=== PATIENT | male | born 1945 | race Caucasian/White ===

== ENCOUNTER 2019-06-27 20:55 | Inpatient (IN) | payer OTHER ==
[~2019-06-27] VITALS: Ht 180.3 cm; Wt 106.0 kg
[~2019-06-27 20:55] MED LIST: ALLOPURINOL100 MG PO; ASPIR 8181 MG PO; CARDIZEM CD360 MG PO; FINASTERIDE5 M1 PO; GLIPIZIDE10 MG PO; GLYXAMBI1 TAB PO; LATANOPROST2.5 ML OP; LOSARTAN POTASS1 TA6 PO; METFORMIN HCL1000 MG PO; OMEPRAZOLE40 M1 PO; PIROXICAM20 MG PO; SIMVASTATIN40 M1 PO
[2019-06-27 21:02] VITALS: Ht 180.3 cm; Wt 106.0 kg
--- NOTE | 2019-06-27 21:11 | NUR ---
PT BIBA WITH C/O NEAR SYNCOPAL EPISODE. PT STS I WAS GETTING UP FROM COUCH AND BECAME WEAK AND FELL TO MY KNEES. DENIES ANY LOC. DENIES ANY TRAUMA. PT STS GAL BEEN FEELING SICK SINCE TUESDAY. PT STS HAVING TESTICLE PAIN AND SWELLING X2 DAYS. PER MEDIC, PTS BS TAKEN EN ROUTE 505. PER MEDIC, IV INSERTED TO LFA G 18, 300ML BOLUS GIVEN EN ROUTE. PT IS A/O X4, SPEECH CLEAR AND APPROPRIATE. SCROTAL EDEMA NOTED, SIZE OF BASEBALL. PLACED ON FULL CM. WILL CONTINUE TO MONITOR.
[2019-06-27 21:23] LABS: PLATELET COUNT 203 x10^3mcL (130-400); RED CELL DISTRIBUTION WIDTH 13.9 % (11.5-14.5)
[2019-06-27 21:30] LABS: CALCIUM 7.8 mg/dL (8.5-10.1); CARBON DIOXIDE 26.3 mmol/L (21-32); CHLORIDE SERUM 94 mmol/L (98-107); GLUCOSE SERUM 440 mg/dL (74-106); POTASSIUM SERUM 3.2 mmol/L (3.5-5.1); SODIUM SERUM 135 mmol/L (136-145)
[2019-06-27 21:34] LABS: ALKALINE PHOSPHATASE 89 U/L (46-116); ALT/SGPT 18 U/L (16-63); AST/SGOT 16 U/L (15-37); BILIRUBIN TOTAL 0.5 mg/dL (0.20-1.00); TOTAL PROTEIN, SERUM 6.8 g/dL (6.4-8.2)
[2019-06-27 21:35] LABS: ALBUMIN 2.1 g/dL (3.4-5.0)
--- NOTE | 2019-06-27 21:37 | NUR ---
LAB AT BEDSIDE
--- NOTE | 2019-06-27 21:37 | NUR ---
XRAY AT BEDSIDE
--- NOTE | 2019-06-27 21:43 | NUR ---
US AT BEDSIDE
[2019-06-27 21:55] LABS: BAND NEUTROPHIL 6 % (0-10); BASOPHIL 0 % (0-2); MONOCYTE 5 % (0-7); SEGMENTED NEUTROPHILS 78 % (37-75); rbc morphology (normal/abnorm) NORMAL (NORMAL)
[2019-06-27] MEDS ORDERED: HYDRALAZINE HCL25 MG PO (23:10)
[2019-06-27] MEDS ORDERED: COSOPT OCUMETER10 ML OU (23:11)
[2019-06-27] MEDS ORDERED: JANUVIA100 M1 PO (23:11)
[2019-06-27] MEDS ORDERED: ONE-A-DAY MEN'S1 TAB PO (23:12)
--- NOTE | 2019-06-27 23:19 | NUR ---
PTS RECTAL TEMP 101.6, COOLING MEASURES AND TYLENOL PROVIDED
--- NOTE | 2019-06-27 23:20 | NUR ---
DR BAI VERBAL ORDER GIVEN TO GIVE SEPSIS PROTOCOL BOLUS. 2800 L NS BOLUS GIVEN AT THIS TIME.
[2019-06-27 23:34] LABS: UA SPECIFIC GRAVITY 1.015 (1.005-1.035); microscopic required? YES; urine erythrocyte NEGATIVE (NEGATIVE)
--- NOTE | 2019-06-27 23:57 | NUR ---
REPORT GIVEN TO TAMERA HENSON TO ASSUME CARE
[2019-06-28] VITALS (12 sets, daily range): BP systolic 95–157; BP diastolic 58–76
[2019-06-28 00:35] LABS: MAGNESIUM 1.4 mg/dL (1.8-2.4); PHOSPHOROUS 2.9 mg/dL (2.5-4.9)
--- NOTE | 2019-06-28 01:05 | NUR ---
RECEIVED PT FROM ED VIA [employer], CAME IN DUE TO SYNCOPE, FEVER, AND SCROTAL EDEMA. AAOX4. DENIES HEADACHE/DIZZINESS. ABLE TO FOLLOW COMMANDS. SPEECH IS CLEAR. NO FACIAL DROOP. HAND BULLET LUBRICANT MIXER EQUAL. NO ARM DRIFT NOTED. NO SOB, LUNG SOUNDS CTA, O2 SAT=98%, RA. DENIES CHEST PAIN/PRESSURE, SR ON THE MONITOR. STATED THAT HE HAD NAUSEA SINCE TUESDAY AND HAD DIARRHEAL EPISODES X2-3 DAYS. LAST BM YESTERDAY AND HAD X1 DIARRHEAL EPISODE. ABDOMEN IS SOFT AND ROUND. DENIES DYSURIA BUT SCROTAL EDEMA NOTED. C/O 10/10 THROBBING AND PRESSURE TESTICULAR PAIN. IV SITE PATENT AND INTACT. SIDE RAILS UPX2. CALL LIGHT ON REACH. HOB ELEVATED AT 30 DEG. AT BEDSIDE. TEMP-99.4. ENDORSED TO PRIMARY NURSE CHENTE FOR CONTINUITY OF CARE
--- NOTE | 2019-06-28 02:30 | NUR ---
PT C/O 08/09 TESTICULAR PAIN DESCRIBED THROBBING. MEDICATED WITH PRN DILAUDID PER DEC. BP 104/57, HR 90. REASSESSED PAIN. PT STATES NO RELIEF OF PAIN RATES PAIN AT 06/09. STATES FEELING WARM. TEMP CHECK 99.1, AC TURNED ON. CURRENT BP 97/60, HR 89, RESP 19. REQUESTING ICE PACK FOR TESTICLES, ICE PACK PROVIDED. WILL CONTINUE TO MONITOR.
--- NOTE | 2019-06-28 04:03 | NUR ---
PT LACTIC ACID CAME BACK, CURRENT LACTIC ACID 3.8. DR GREEN MADE AWARE. NO NEW ORDERS RECEIVED. WILL CONTINUE TO MONITOR.
--- NOTE | 2019-06-28 06:40 | NUR ---
CLARIFIED ORDER FOR SECOND NS BOLUS WITH DR LEA, PER DR. ORDER IS CORRECT DUE TO PT BEING ON SEPSIS PROTOCAL. 1000CC BOLUS NS GIVEN. PT HAS NOT URINATED SINCE ARRIVED TO UNIT. DENIES FEELING TO URINATE. BLADDER SCAN DONE, SHOWS 200CC. NO BLADDER DISTENTION NOTED. DENIES PAIN ON PALPATION. WILL CONTINUE TO MONITOR URINE OUTPUT. STATES SCROTAL PAIN IS BETTER. PROVIDED ICE PACK FOR TESTICLES, PT STATES ICE PACKS ARE HELPING WITH PAIN. ALL NEEDS ASSESSED AND ATTENDED. NO ACUTE DISTRESS NOTED. BED AT LOWEST SETTING. SIDE RAILS X2 UP. CALL LIGHT WITHING REACH. WILL ENDORSE CARE TO AM NURSE.
--- NOTE | 2019-06-28 07:02 | NUR ---
RECEIVED PT FROM SPREADER BOX OPERATOR NURSE. PT RESTING IN BED, AOX4, RESP E/U ON RA. CURRENTYL UNDERGOING ULTRASOUND AT BEDSIDE. NO SIGNS OF ACUTE DISTRESS NOTED. IV TO LFA W/ NO SIGNS OF INFILTRATION, IVF INFUSING WELL. BED IN LOWEST POSITION AND CALL LIGHT WITHIN REACH. WILL CONTINUE TO MONITOR.
[2019-06-28 07:18] LABS: PLATELET COUNT 195 x10^3mcL (130-400); RED CELL DISTRIBUTION WIDTH 14.3 % (11.5-14.5)
[2019-06-28 07:37] LABS: CALCIUM 7.4 mg/dL (8.5-10.1); CARBON DIOXIDE 26.9 mmol/L (21-32); CHLORIDE SERUM 96 mmol/L (98-107); CREATININE SERUM 3.1 mg/dL (0.7-1.3); MAGNESIUM 1.5 mg/dL (1.8-2.4); PHOSPHOROUS 4.2 mg/dL (2.5-4.9); POTASSIUM SERUM 3.8 mmol/L (3.5-5.1); SODIUM SERUM 135 mmol/L (136-145)
[2019-06-28 07:45] LABS: GLUCOSE SERUM 459 mg/dL (74-106)
--- NOTE | 2019-06-28 07:46 | NUR ---
LAB CALLED TO REPORT GLUOCSE: 459. PAGED DR. PUGH. NO NEW ORDERS AT THIS TIME.
--- NOTE | 2019-06-28 09:02 | NUR ---
ADMINISTERED LANTUS 10 U SQ ORDERED FOR GLUCOSE: 459.
--- NOTE | 2019-06-28 13:49 | NUR ---
RECEIVED A CALL FROM KATHLEEN(LAB STAFF) WITH CRITICAL RESULT LACTIC-2.6. PAGED (RESIDENT) ASSIGNED TO THIS PT, AWAITING FOR HER RETURN CALL. ILANA RN ASSIGNED TO THIS PT MADE AWARE OF ABOVE.
--- NOTE | 2019-06-28 14:11 | NUR ---
PHYSICAL THERAPY NOTE ATTEMPTED FOR PHYSICAL THERAPY EVAL REQUESTED; PATIENT IS TAKEN FOR MEDICAL PROCEDURE PER ILANA HENSON.
--- NOTE | 2019-06-28 14:20 | NUR ---
ECHO PENDING, PATIENT NOT IN ROOM AT THIS TIME.
--- NOTE | 2019-06-28 15:11 | NUR ---
REPORT GIVEN TO [facility] [employer] GREWAL. PENDING PT TRANSFER.
--- NOTE | 2019-06-28 15:14 | NUR ---
PT ARRIVED FROM OR S/P I&D OF SCROTUM ACCOMPANIED BY OR NURSES AT THIS TIME. PT INTUBATED WITH NO SEDATION. UNABLE TO FOLLOW COMMANDS. PUPILS 2MM IN SIZE AND SLUGGISH IN RESPONSE TO LIGHT B/E. 8.0 ETT @ 26 LL. BREATHING E/U. SYMM CHEST WALL EXPANSION NOTED. NO S/S OF RESP DISTRESS NOTED. VS: TEMP = 98.2, HR = 101, BP = 152/76 (91), RR = 17, O2 = 98%. MOD PALPABLE PULSES X4. CAP REFILL <3 SEC. RIJ TLC CVC INTACT, X3 PORTS PATENT, DRESSING CDI. PIV TO R HAND AND L WRIST, PORTS PATENT, DRESSINGS CDI. F/C INTACT AND DRAINING VIA GRAVITY. URINE IS YELLOW IN COLOR. INCISION NOTED TO SCROTUM WITH IODOFORM PACKING AND ABD PAD DRESSING. WILL ASSUME CARE OF PT.
--- NOTE | 2019-06-28 15:30 | NUR ---
B/E SOFT WRIST RESTRAINTS APPLIED TO PT FOR PT'S SAFETY. TWO-FINGER WIDTH UNDER RESTRAINTS, PT ABLE TO MOVE FINGERS, NO CYANOSIS PRESENT, CAP REFILL <3 SEC TO BUE NOTED. SEE RESTRAINT SHEET FOR DETAILS.
[2019-06-28 16:13] LABS: BAND NEUTROPHIL 3 % (0-10); SEGMENTED NEUTROPHILS 94 % (37-75); rbc morphology (normal/abnorm) NORMAL (NORMAL)
--- NOTE | 2019-06-28 16:26 | NUR ---
PER DR. OWENS GIVE 50 MCG OF FENTANYL AND 2 MG OF VERSED DUE TO PT'S RESTLESSNESS AND AGITATION.
--- NOTE | 2019-06-28 16:40 | NUR ---
PER DR. OWENS TO PLACE OGT INTO PT FOR TUBE FEEDINGS. OGT 16 HUNGARIAN MEASURED, INSERTED, AND AUSCULTATED. ORDER FOR KUB ORDERED AND AWAITING FOR VERIFICATION.
--- NOTE | 2019-06-28 16:50 | NUR ---
INITIATED FENT @ 1 MCG/KG/HR AND VERSED @ 1 MG/HR AT THIS TIME PER DR. OWENS'S ORDERS.
--- NOTE | 2019-06-28 18:10 | NUR ---
TITRATED FENT TO 0.5 MCG/KG/HR AND VERSED TO 0.5 MG/HR DUE TO PT'S BLOOD PRESSURE TRENDING DOWN OF MAP TO HIGH 60'S.
--- NOTE | 2019-06-28 18:15 | NUR ---
PT TAKEN TO CT AT THIS TIME ACCOMPANIED BY 3 RT AND SURU RN ON PORTABLE ADMINISTRATIVE PERSONAL ASSISTANT. VSS.
--- NOTE | 2019-06-28 18:41 | NUR ---
PT BACK FROM CT ACCOMPANIED BY RT AND SURU RN. PER SURU RN, PT BECAME AGITATED AND RESTLESS AND TITRATED FENT TO 0.8 MCG/KG/HR AND VERSED TO 0.8 MG/HR. VSS STABLE. NO ACUTE DISTRESS NOTED.
--- NOTE | 2019-06-28 19:20 | NUR ---
REC'D REPORT FROM URI HENSON TO ASSUME CARE. PT INTUBATED AND SEDATED ON VERSED 0.8 MG/HR, FENTANYL 0.8 MCG/KG/HR WITH RSS 4. PT ABLE TO FOLLOW COMMANDS WHEN AWAKE. PERRLA NOTED. 8.0 ETT SECURED AND 26 CM LL. NO JVD NOTED. TRACHEA MIDLINE. OGT INTACT AND PATENT. RIJ CVC INTACT, PORTS PATENT, DSG CDI. ETT TO VENT: AC MODE RATE 12, TV 600, PEEP 5, FIO2 40%. RESPS E/U. CHEST RISE EQUAL AND SYMMETRICAL. LUNG SOUNDS EXP CLEAR BUL, DIM BASES. FUNERAL DRIVER IN PLACE SHOWING NSR WITH HR 83. BP 101/67 MAP 78. PULSES PALPABLE X4. CAP REFILL < 3 SECS. NO EDEMA NOTED. IVF NS INFUSING AT 100 ML/HR. BLE SCDS IN PLACE. TF WILL BE INITIATED TONIGHT. ABD ROUND, SOFT, NONTENDER TO TOUCH. BOWEL SOUNDS ACTIVE. NO N/V NOTED. F/C INTACT AND DRAINING VIA GRAVITY YELLOW URINE. SCROTAL EDEMA NOTED. NO PENILE DISCHARGE NOTED. S/P I&D TODAY TO SCROTUM FOR NECROTIZING FASCITIS, MODERATE AMT OF SEROSANGUINOUS DRAINAGE NOTED ON CHUX, F/C CARE PROVIDED, LINENS CHANGED. GEN WEAKNESS NOTED. TURNED AND REPOSITIONED Q2H FOR PRESSURE RELIEF. PTS RUE RESTRAINTS TAKEN OFF AT THIS TIME, LUE RESTRAINT IN PLACE. PTS AT BEDSIDE. PT AGREES TO NOT PULL OUT ANY TUBING OR PEANUT CLEANER. PT IN FULL VIEW OF NURSING STATION FOR CLOSE MONITORING. ALL NEEDS MET AT THIS TIME. WILL CONTINUE TO MONITOR.
--- NOTE | 2019-06-28 20:00 | NUR ---
TF GLUCERNA 1.2 INITIATED AT THIS TIME @ 10ML/HR, FWF 50ML Q4H.
--- NOTE | 2019-06-28 22:28 | NUR ---
DR REED AT BEDSIDE, UPDATED ON STATUS, NO NEW ORDERS GIVEN.
[2019-06-29] VITALS (13 sets, daily range): BP systolic 88–167; BP diastolic 55–95
--- NOTE | 2019-06-29 01:00 | NUR ---
PT AWAKE AND RESTLESS, SEDATION FENTANYL INCREASED TO 1 MCG/KG/HR, VERSED 1 MG/HR WITH RSS 4.
--- NOTE | 2019-06-29 01:30 | NUR ---
GRV=O, TF INCREASED TO 20ML/HR.
--- NOTE | 2019-06-29 03:57 | NUR ---
GRV=10, TF INCREASED TO 30ML/HR.
[2019-06-29 04:58] LABS: PLATELET COUNT 195 x10^3mcL (130-400)
[2019-06-29 05:01] LABS: RED CELL DISTRIBUTION WIDTH 14.6 % (11.5-14.5)
[2019-06-29 05:08] LABS: BAND NEUTROPHIL 6 % (0-10); CALCIUM 6.8 mg/dL (8.5-10.1); CHLORIDE SERUM 104 mmol/L (98-107); CREATININE SERUM 2.1 mg/dL (0.7-1.3); GLUCOSE SERUM 174 mg/dL (74-106); MAGNESIUM 1.7 mg/dL (1.8-2.4); MONOCYTE 5 % (0-7); PHOSPHOROUS 2.6 mg/dL (2.5-4.9); POTASSIUM SERUM 3.3 mmol/L (3.5-5.1); SEGMENTED NEUTROPHILS 85 % (37-75); SODIUM SERUM 139 mmol/L (136-145)
[2019-06-29 05:09] LABS: PLATELET MORPHOLOGY PLATELETS NORMAL; rbc morphology (normal/abnorm) NORMAL (NORMAL)
--- NOTE | 2019-06-29 05:09 | NUR ---
PTS CHUX NOTED WITH SEROSANGUIENOUS DRAINIAGE, MODERATE AMT, LINENS CHANGED, DSG REINFORCED TO SCROTAL AREA. WILL CONTINUE TO MONITOR.
--- NOTE | 2019-06-29 05:10 | NUR ---
DR PUGH MADE AWARE OF ALL ABNORMAL LABS, AWAITING FOR FURTHER ORDERS.
--- NOTE | 2019-06-29 06:26 | NUR ---
DR OWENS AT BEDSIDE, UPDATED ON STATUS, PER DR OWENS START WEANING TRIALS TODAY ON CPAP, ABG ON CPAP, THEN POSSIBLY EXTUBATE. PTS SEDATION DECREASED TO FENTANYL 0.5 MCG/KG/HR AND VERSED 0.5 MG/HR.
--- NOTE | 2019-06-29 06:33 | NUR ---
SEDATION DECREASED TO FENTANYL 0.25 MCG/KG/HR, VERSED 0.25 MG/HR PER DR OWENS FOR WEANING TRIALS IN AM.
--- NOTE | 2019-06-29 07:15 | NUR ---
REPORT GIVEN TO EDGAR HENSON TO ASSUME CARE.
--- NOTE | 2019-06-29 07:15 | NUR ---
SEDATION TURNED OFF AT THIS TIME FOR WEANING TRIALS IN AM.
--- NOTE | 2019-06-29 08:00 | NUR ---
RT PLACED PT ON CPAP AT THIS TIME. WILL CONTINUE TO MONITOR PT FOR S/S DISTRESS. RR 11, SPO2 99%.
--- NOTE | 2019-06-29 08:28 | NUR ---
INITIATING BOLUS OF 500 ML LR AT 500 ML/HR.
--- NOTE | 2019-06-29 10:57 | NUR ---
PT EXTUBATED @ 1055. NO STRIDOR, LUNG SOUNDS CLEAR BILATERAL UPPER LOBES, DIMINISHED BILATERAL LOWER LOBES. CHEST EXPANSION SYMMETRIC, NO S/S DISTRESS NOTED. SPO2 98% ON 2L NASAL CANNULA, RR 13. PT AND HIS EDUCATED ON USE OF INCENTIVE SPIROMETER: WILL REINFORCE TEACHING & CONTINUE TO MONITOR PT.
--- NOTE | 2019-06-29 12:33 | NUR ---
BEDSIDE SWALLOW SCREEN COMPLETED. PATIENT ABLE TO TOLERATE ALL CONSISTENCIES OF FOOD WITHOUT ANY COUGHING, GAGGING OR CHOKING. EFRAÍN AREA SUPERVISOR ON UNIT AND MADE AWARE. NEW ORDERS RECEIVED FOR THE [facility] DIET.
--- NOTE | 2019-06-29 12:48 | NUR ---
RIGHT HAND IV REMOVED, CATHETER TIP INTACT.
--- NOTE | 2019-06-29 14:37 | NUR ---
Recommendation(s): 1. Add Ensure High Protein BID 2. Add Foster QD 3. Spoke w/ MARTIAL ARTS INSTRUCTOR Edu regarding ONS, confirmed.
--- NOTE | 2019-06-29 14:37 | NUR ---
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 (no stroke Hx) PSHx: hernia repair (R inguinal w/o copmplications), R hand surgery tendon reattachemnt / trauma 1974, L hand surgery 2/2 trigger finger w/o reccurence, Tonsillectomy at age 11 (no complications) Labs: BG 174 H, BUN 45 H, Cr 2.1 H, Alb 2.1 L, Ca 6.8 L, Mg 1.7 L, BNP 516.62 H, A1c 9.6 H, PT 11.3 H Meds: Colace, Humulin, Lantus, Lipitor, Proscar, Protonix, Vancomycin, Zofran Diet: NPO (TF), Glucerna 1.2 @10mL/hr (goal 35mL), adv q4hrs, FWF 50mL q4hrs PO intake since admission: NPO Ht: 71in Wt: 239# BMI: 33.5 Bed scale: 134 kg/295# IBW: 172# %IBW: 139% UBW: 210# Age: 74 Food Allergies: NKFA Skin: Dressing to scrotum noted under , IV & RIJ sites WNL Baron: 15 Edema: None noted GI: BS active all quadrants, no BM at this time, Abd round, soft, nontender to palpation Last BM: 06/27 Note (06/29): Noted pt now at 30mL/hr (TF), per shift reassessment. Per MD Consult, scrotal wall thickening/edema > sepsis 2/2 acute necrotizing fascitis s/p I&D/fasciotomy. Pt discussed during bed huddles, still intubated, possible surgery on Tuesday (07/02), multiple lesions on kidneys and liver, hydronephrosis. Visited pt bedside w/ present. Pt was receiving Glucerna 1.2 TF, but improved enough for PO diet - CCHO diet transmitted for lunch. RN stated pt passed swallow eval, able to tolerate all consistencies of food w/o coughing. Pt states appetite is usually good, but right before receiving lunch, appetite is low, seen only eating a bit of jello. Pt's states monitors his BG every day, and controls his DM with his diet (low CHO, low sugar) and exercise. states pt's BG baseline is 190-210, was around 500s when admitted to ER. also states pt takes Januvia and Metformin for his DM. Pt no c/o significant pain at this time. Pt approrpiate for diet supplementation r/t wound healing. Spoke w/ SUPERVISOR PATCHING Edu regarding ONS, confirmed. Problem with N/V/D/C: Constipation Problems with: Chewing: No Swallowing: No Current appetite: Alright Recent wt change: N/A %wt change: N/A Vitamin/Supplement use: MVM (One A Day for Men) Special diet at home: Low CHO, low sugar Physical activity: Walk 30min in neighborhood every night Nutrition education given (specify specific nutrition education and handout given): None given at this time. Food-drug interactions? Education given? None given at this time. Estimated Nutritional Needs Based on actual body weight (109 kg) Energy: 5511-4151 kcal/day (25-30 kcal/kg for ICU) Protein: 131-164 g/day (1.2-1.5 g/kg wound healing, preserve LBM) Fluid: 1140-9640 (1mL/kcal) or per MD Nutrition Diagnosis: 1. Increased nutrient needs r/t wound healing AEB scrotal acute necrotizing fascitis of scrotal area s/p I&D/fasciotomy Intervention 1. Add Ensure High Protein BID 2. Add Foster QD 3. Spoke w/ SUPERVISOR PATCHING Edu regarding ONS, confirmed. Monitor/Evaluate Goal: Meet at least 75% of estimated needs, adequate wound healing Monitor: PO intake, Labs, GI function, wound healing F/U in 2-3 days as high risk 07/01-07/02
--- NOTE | 2019-06-29 18:23 | NUR ---
PATIENT COMPLAINED OF NAUSEA; ZOFRAN 4MG IVP WAS MEDICATED TO THE PATIENT.
--- NOTE | 2019-06-29 18:26 | NUR ---
PATIENT'S BP TRENDING UP. CURRENT BP 180/93 (MAP 117). TELEPHONED RESDIENT CALL PHONE AND SPOKE WITH DR LANDA AND REPORTED. AWAITING NEW ORDERS. PATIENT ALSO C/O FEELING NAUSEATED. ADMINISTERED 4MG ZOFRAN IVP FOR NAUSEA.
--- NOTE | 2019-06-29 19:05 | NUR ---
RECIEVED REPORT FROM YUNIER HENSON. WILL RESUME CARE.
--- NOTE | 2019-06-29 19:23 | NUR ---
DR. REED AT BEDSIDE ASSESSING PT. UPDATES PROVIDED.
--- NOTE | 2019-06-29 20:17 | NUR ---
HYDRALAZINE 25MG PO 1 TAB PRN GIVEN. BP 172/83. WILL CONTINUE TO MONITOR.
--- NOTE | 2019-06-29 22:17 | NUR ---
PT HAD SMALL AMOUNT OF EMESIS X2 AFTER RECEIVING PO HYDRALAZINE. DR. HIGGINS NOTIFIED DUE TO PT'S BP STILL BEING ELEVATED. NEW ORDER MADE FOR HYDRALAZINE HCL 10MG IVP PRN AND GIVEN TO PT, BP 169/90. WILL CONTINUE TO MONITOR.
--- NOTE | 2019-06-29 22:22 | NUR ---
PT MEDICATED FOR N/V WITH ZOFRAN 4MG IVP.
[2019-06-30] VITALS (8 sets, daily range): BP systolic 124–163; BP diastolic 50–83
--- NOTE | 2019-06-30 04:52 | NUR ---
PT CLEANED AND ALL LINENS AND GOWN CHANGED. MODERATE AMOUNT OF SEROSANGUINOUS DRAINAGE NOTED TO CHUCKS. NEW CHUCKS PROVIDED AND SCROTAL AREA REINFORCED. OUTPUT IN TIJERINA, 1650CC OF YELLOW URINE.
--- NOTE | 2019-06-30 05:10 | NUR ---
WASHER OFF AT BEDSIDE FOR BLOOD DRAW.
[2019-06-30 05:19] LABS: PLATELET COUNT 245 x10^3mcL (130-400)
[2019-06-30 05:22] LABS: RED CELL DISTRIBUTION WIDTH 14.7 % (11.5-14.5)
[2019-06-30 05:25] LABS: BAND NEUTROPHIL 5 % (0-10); MONOCYTE 4 % (0-7); PLATELET MORPHOLOGY PLATELETS NORMAL; SEGMENTED NEUTROPHILS 88 % (37-75); rbc morphology (normal/abnorm) NORMAL (NORMAL)
[2019-06-30 05:48] LABS: CALCIUM 7.2 mg/dL (8.5-10.1); CARBON DIOXIDE 24.4 mmol/L (21-32); CHLORIDE SERUM 105 mmol/L (98-107); CREATININE SERUM 1.4 mg/dL (0.7-1.3); GLUCOSE SERUM 198 mg/dL (74-106); MAGNESIUM 1.7 mg/dL (1.8-2.4); PHOSPHOROUS 2.9 mg/dL (2.5-4.9); SODIUM SERUM 142 mmol/L (136-145)
[2019-06-30 05:49] LABS: ALBUMIN 1.5 g/dL (3.4-5.0)
[2019-06-30 05:51] LABS: POTASSIUM SERUM 2.9 mmol/L (3.5-5.1)
--- NOTE | 2019-06-30 07:00 | NUR ---
SPOKE WITH EFRAÍN ASIF AND PROVIDED PATIENT UPDATE.
--- NOTE | 2019-06-30 07:05 | NUR ---
EFRAÍN DRY DIP WORKER AT BEDSIDE TO ASSESS PATIENT. POC DISCUSSED BEDSIDE WITH PATIENT AND . ALL QUESTIONS AND CONCERNS ADDRESSED. LABS REVIEWED BY LAYA KENNY WITH NEW ORDERS RECEIVED. WILL CARRY OUT ORDERS.
--- NOTE | 2019-06-30 07:07 | NUR ---
GAVE REPORT TO MARJORIE HENSON. ALL QUESTIONS AND CONCERNS ADDRESSED.
--- NOTE | 2019-06-30 07:42 | NUR ---
RECEIVED PT'S REPORT FROM LEAVING NURSE. PT'S AT BEDSIDE. PT COMPLAIN OF GENERALIZED PAIN 10/10, MORPHINE 2MG GIVEN BY INFORMATION SECURITY ARCHITECT NURSE. PT PAIN IS RELEASING SOME AT THIS TIME, DOSING ON AND OFF, EASILY AROUSED VIA AUDITORY STIMULI WITH VERBALLY COMMUNICATION. PT BREATHING ON O2 2L VIA NC, EVEN, UNLABORED. TIJERINA IN PLACE, DRAINING VIA GRAVITY, URINE COLOR YELLOW. INCISION ON SCROTUM CDI AT THIS TIME. IVF NS INFUSING AT 120ML/HR VIA CENTRAL LINE RIJ. WILL CONTINUE TO MONITOR.
--- NOTE | 2019-06-30 08:40 | NUR ---
DR. SUAZO SAW PT AND OPENED DRESSING ON SCROTUM AND STATED PT NEED A SECOND SURGERY. DRESSING ON INCISION SITE LEFT OPEN PER DR. SUAZO. WAITING FOR ORDER.
--- NOTE | 2019-06-30 08:50 | NUR ---
EFRAÍN ASIF AT BEDSIDE SPEAKING WITH PATIENT AND HIS REGARDING EXCISIONAL DEBRIDEMENT OF SCROTUM.
--- NOTE | 2019-06-30 08:51 | NUR ---
INITIATING 40 MEQ K-RIDER FOR K+ 2.9.
--- NOTE | 2019-06-30 09:28 | NUR ---
PT'S PRE-OP REPORT GIVEN TO OR NURSE RIVERO, MADE OR NURSE AWARE MORPHINE, ZOFRAN, AND PROTONIX ARE GIVEN AROUND 0900AM. PT'S VS STABLE AT THIS TIME.
--- NOTE | 2019-06-30 09:53 | NUR ---
PT IS TAKEN TO OR FOR SURGERY. PT LEFT WITHOUT DISTRESSED AT THIS TIME.
--- NOTE | 2019-06-30 11:09 | NUR ---
RECEIVED PATIENT BACK FROM OR VIA BED ACCOMPANIED BY MAT HENSON. PATIENT IS DROWSY BUT AROUSABLE. PT ON O2 6L W/ MASK O2 SAT 96%. PATIENT PLACED ON O2 3L NC O2 SAT 96%. FLUIDS RESUMED PER DR PATEL. VITALS TAKEN AND STABLE (SEE DOCUMENTATION). SCDS APPLIED. ALL QUESTIONS AND CONCERNS ADDRESSED.
--- NOTE | 2019-06-30 11:10 | NUR ---
PER OR NURSE REPORT: PT RECEIVED EXCISIONAL DEBRIDEMENT OF SCROTAL Excisional debridement of scrotal and perineal necrotizing fasciitis. NO NEW INCISIONS, PREVIOUS INCISION IS PACKED. EBL 100ML, URINE OUT 600ML, LR 500ML GIVEN IN OR. NO ADDITIONAL ANTIBIOTICS.
--- NOTE | 2019-06-30 11:15 | NUR ---
SPOKE WITH TRANSFER CENTER AT [facility] AT . FACESHEET FAXED OVER WITH PATIENT INFORMATION. AWAITING RETURN CALL.
[2019-06-30] MEDS ORDERED: VANCO 1 GR1 GM/250 M IV (11:30)
--- NOTE | 2019-06-30 11:30 | NUR ---
SPOKE WITH [facility] FOR BED REQUEST AT . THE WILL BE FAXING CLINICAL INTAKE FORMS TO ICU DIRECTLY FOR COMPLETION.
[2019-06-30] MEDS ORDERED: ZOS3PM IV (11:31)
--- NOTE | 2019-06-30 11:35 | NUR ---
SPOKE WITH [facility] AT REQUESTING BED. CLINICAL INFORMATION (INCLUDING COVER SHEET) FAXED TO . AWAITING RETURN TELEPHONE CALL.
--- NOTE | 2019-06-30 12:22 | NUR ---
SPOKE WITH DALIA AT [facility] WHO STATED TO REFAX PATIENT INFORMATION TO .
--- NOTE | 2019-06-30 13:30 | NUR ---
PT COMPLAIN OF GENERALIZED PAIN AND NAUSEA. MORPHINE AND ZOFRAN GIVEN PER ORDER.
--- NOTE | 2019-06-30 13:30 | NUR ---
SPOKE WITH DALIA AT [facility]. THEY WILL NOT ACCEPT PATIENT THEY FEEL THAT HE IS IN NEED OF A TERTIARY CENTER.
--- NOTE | 2019-06-30 13:45 | NUR ---
SPOKE WITH TORSTEN AT [facility] . PATIENT INFORMATION PROVIDED REGARDING PATIENT TRANSFER. FAXED PATIENT INFORMATION TO . AWAITING RETURN TELEPHONE CALL.
--- NOTE | 2019-06-30 15:58 | NUR ---
PT'S BP ELEVATED TO 165/81, HR 79 BPM. HYDRALAZINE 50 MG GIVEN, WHICH WAS HELD THIS MORNING BEFORE SURGERY.
--- NOTE | 2019-06-30 16:59 | NUR ---
AFTER HYDRALAZIN GIVEN, RECHECK PT'S BP 134/50, HR 90 BPM.
--- NOTE | 2019-06-30 18:30 | NUR ---
PHYSICAL THERAPY NOTE ATTEMPTED PHYSICAL THERAPY SCHEDULED SESSION; NSG REQUESTED TO HOLD PHYSICAL THERAPY SESSION AT THIS TIME
--- NOTE | 2019-06-30 19:00 | NUR ---
PATIENT C/O NAUSEA. ADMINISTER ZOFRAN 4MG IVP.
--- NOTE | 2019-06-30 19:15 | NUR ---
RECIEVED REPORT FROM SIXTO AMADOR. NURSING UPDATES. POC DISCUSSED. RESUMED CARE OF PT. SEE SHIFT ASSESSMENT FOR ASSESSMENT.
--- NOTE | 2019-06-30 21:23 | NUR ---
PT NISH [phone] STATED TO NOTIFY HER IF PT TRANSFER AND OR CALL SHE GOING HOME FOR THE EVENING. PT RESTING CALMLY IN BED NO S/S OF ACUTE DISTRESS. PT NOTIFIED OF FEELING A LITTLE BETTER THAN PREVIOUS DAY.
--- NOTE | 2019-06-30 21:29 | NUR ---
NOTIFIED PER DR MANCERA THAT [facility] ACCEPTING PT AND AWAITING TRANSFER IN "A FEW HOURS"
--- NOTE | 2019-06-30 23:31 | NUR ---
PT C/O PAIN 7/10 GENERALIZED IN PERINEAL AREA AND N/V. ADM (SEE MAR) MORPHINE AND PRN ZOFRAN. PT NOTED FEELING BETTER PAIN REFLIEF AND RELIEF OF N/V. WILL CONT TO MONITOR.
--- NOTE | 2019-07-01 00:17 | NUR ---
ATTEMPTED TO CALL [facility] FOR REPORT. STATED BED WAS NOT READY AND WOULD NOTIFY BACK WHEN BED WAS READY. NOTIFIED TRANSFER CENTER [phone] W/ [facility] TO NOTIFY US WHEN BED WAS READY. LATANYA CAMPA RN NOTIFIED [facility] TEAM FOR PICKUP WHEN WE CALL TO NOTIFIY BED READY FOR TRANSFER. AWAITING CALL FROM [facility]/TRANSFER CENTER.
--- NOTE | 2019-07-01 01:14 | NUR ---
REPORT GIVEN TO RN JJ @ [facility]. NURSING UPDATES. POC DISCUSSED. AWAITING ARRIVAL TRANSPORT TEAM. NOTIFIED NISH OF TRANSFER ORDER.
--- NOTE | 2019-07-01 03:34 | NUR ---
[facility] TEAM @ BEDSIDE FOR PICKUP. NURSING UPDATES. POC DISCUSSED. [facility] TEAM LEFT W/ PT TO [facility]. VS STABLE WNL. PT DENIES ANY NEW SYMPTOMS.
--- NOTE | 2019-07-03 09:43 | NUR ---
WOUND CARE CONSULT NOT DONE, PT. DISCHARGED
== END 2019-07-01 03:46 | disposition short-term general hospital (02) | DRG 853 ==
LOC: ED 20:55 → DU 23:19 → IC 23:19 → DU 06-28 01:07 → IC 06-28 15:12
PROVIDERS: Emergency Medicine; Internal Medicine; Surgery; ADMIT Internal Medicine
PROC: 0V950ZZ Drainage of Scrotum, Open Approach (ICD-10-PCS; principal; 2019-06-28 14:30)
PROC: 0HBAXZZ Excision of Inguinal Skin, External Approach (ICD-10-PCS; 2019-06-30)
PROC: 0HB9XZZ Excision of Perineum Skin, External Approach (ICD-10-PCS; 2019-06-30)
DX: A41.9 Sepsis, unspecified organism (principal); N17.0 Acute kidney failure with tubular necrosis; M72.6 Necrotizing fasciitis; E43 Unspecified severe protein-calorie malnutrition; E87.1 Hypo-osmolality and hyponatremia; N45.1 Epididymitis; N40.1 Benign prostatic hyperplasia with lower urinary tract symptoms; R33.8 Other retention of urine; E86.0 Dehydration; R55 Syncope and collapse; J06.9 Acute upper respiratory infection, unspecified; E87.6 Hypokalemia; I65.22 Occlusion and stenosis of left carotid artery; E11.65 Type 2 diabetes mellitus with hyperglycemia; D64.9 Anemia, unspecified; I10 Essential (primary) hypertension; M10.9 Gout, unspecified; H40.9 Unspecified glaucoma; Z68.29 Body mass index [BMI] 29.0-29.9, adult; Z79.84 Long term (current) use of oral hypoglycemic drugs
CPT/HCPCS: 36600; 82962; 83880; 94150; 97530-GP; A4628; C9113; G0378; J0330; J0360; J1644; J1815; J2001; J2250; J2270; J2405; J2543; J2704; J3010; J3370; J3475; J3480; J3490; J7030; J7040; J7050; J7120; J7620; Q0092

== ENCOUNTER 2020-04-17 22:48 | Emergency (ER) | payer OTHER ==
[~2020-04-17] VITALS: Ht 180.3 cm; Wt 92.1 kg
[~2020-04-17 22:48] MED LIST changes: +COSOPT OCUMETER10 ML OU; +HYDRALAZINE HCL25 MG PO; +JANUVIA100 M1 PO; +ONE-A-DAY MEN'S1 TAB PO; +VANCO 1 GR1 GM/250 M IV; +ZOS3PM IV
[2020-04-17 22:56] VITALS: Ht 180.3 cm; Wt 92.1 kg
[2020-04-17 23:58] LABS: BASOPHIL % 0.6 % (0-2); PLATELET COUNT 291 x10^3mcL (130-400); RED CELL DISTRIBUTION WIDTH 14.6 % (11.5-14.5)
[2020-04-18 00:08] LABS: CALCIUM 8.1 mg/dL (8.5-10.1); CARBON DIOXIDE 23.7 mmol/L (21-32); CHLORIDE SERUM 102 mmol/L (98-107); CREATININE SERUM 1.3 mg/dL (0.7-1.3); GLUCOSE SERUM 299 mg/dL (74-106); POTASSIUM SERUM 3.3 mmol/L (3.5-5.1); SODIUM SERUM 137 mmol/L (136-145)
[2020-04-18 03:03] VITALS: BP 156/81
== END 2020-04-18 03:03 | disposition home or self-care (01) ==
LOC: ED 22:48
PROVIDERS: Emergency Medicine
DX: R31.9 Hematuria, unspecified (principal); R10.30 Lower abdominal pain, unspecified; I10 Essential (primary) hypertension; E11.9 Type 2 diabetes mellitus without complications; Z98.890 Other specified postprocedural states; Z90.89 Acquired absence of other organs
CPT/HCPCS: 36415; 82962

== ENCOUNTER 2020-08-08 11:09 | Day surgery (SDC) | payer OTHER ==
[2020-08-04 10:48] LABS: BASOPHIL % 0.9 % (0-2); PLATELET COUNT 283 x10^3mcL (130-400); RED CELL DISTRIBUTION WIDTH 15.1 % (11.5-14.5)
[2020-08-04 10:59] LABS: CALCIUM 8.7 mg/dL (8.5-10.1); CARBON DIOXIDE 26.3 mmol/L (21-32); CHLORIDE SERUM 102 mmol/L (98-107); CREATININE SERUM 1.1 mg/dL (0.7-1.3); GLUCOSE SERUM 229 mg/dL (74-106); POTASSIUM SERUM 3.5 mmol/L (3.5-5.1); SODIUM SERUM 134 mmol/L (136-145)
[2020-08-04 11:12] LABS: microscopic required? NO
[2020-08-04 11:30] LABS: urine erythrocyte NEGATIVE (NEGATIVE)
--- NOTE | 2020-08-06 13:51 | NUR ---
FAXED RESULT OF EKG, CHEST X-RAY AND COVID RESULT TO DR ORTIZ'S OFFICE PER REQUESTED BY CHIRAG SCHREIBER THIS AM.
--- NOTE | 2020-08-06 13:56 | NUR ---
ANESTHESIOLOGIST DR HUGO REVIEWED LABS- CBC,BMP,PT/INR,PTT, URINALYSIS,AIC RESULT- OK'D TO PROCEED WITH SURGERY.
[~2020-08-08] VITALS: Ht 180.3 cm; Wt 90.3 kg
[2020-08-08 11:45] VITALS: BP 166/83
[2020-08-08 17:40] VITALS: BP 155/83
== END 2020-08-08 17:25 | disposition home or self-care (01) ==
LOC: DS 11:09 → OR 13:00 → DS 13:00
PROVIDERS: ATTEND Urology
DX: N40.0 Benign prostatic hyperplasia without lower urinary tract symptoms (principal); E11.9 Type 2 diabetes mellitus without complications; E78.00 Pure hypercholesterolemia, unspecified; I10 Essential (primary) hypertension; Z20.828 Contact with and (suspected) exposure to other viral communicable diseases; Z79.899 Other long term (current) drug therapy; Z79.84 Long term (current) use of oral hypoglycemic drugs; Z79.82 Long term (current) use of aspirin
CPT/HCPCS: 82962; J2175; J3010; U0003-CS